=== PATIENT | male | born 1950 | race Caucasian/White ===

== ENCOUNTER 2018-07-18 05:34 | Inpatient (IN) | payer OTHER ==
[2018-07-18] VITALS (8 sets, daily range): BP systolic 128–171; BP diastolic 87–102
[~2018-07-18] VITALS: Ht 180.3 cm; Wt 101.2 kg
[2018-07-18] MEDS ORDERED: DYRENIUM50 MG PO (05:51)
[2018-07-18] MEDS ORDERED: ZETIA10 MG PO (06:16)
[2018-07-18] MEDS ORDERED: ZYLOPRIM300 MG PO (06:16)
[2018-07-18] MEDS ORDERED: PROTONIX 20 MG20 M1 PO (06:17)
[2018-07-18 06:18] LABS: HEMOGLOBIN 17.9 gm/dL (14.0-18.0); RDW 13.2 % (10.5-14.5)
[2018-07-18 06:19] LABS: ABSOLUTE NEUTROPHILS 7.2 thou/uL (1.4-8.2); BASOPHILS 0.7 % (0.0-2.0); HEMATOCRIT 52.3 % (42.0-52.0); LYMPHOCYTES 21.6 % (24.0-44.0); MCH 29.5 pg (26.0-34.0); MCHC 34.3 g/dL (28.0-37.0); MCV 86.2 fL (80.0-100.0); MONOCYTES 4.9 % (1.0-8.0); POLYS 70.8 % (36.0-66.0); RBC 6.06 mil/uL (4.50-6.00); WBC 10.1 thou/uL (4.0-11.0)
[2018-07-18 06:25] LABS: ANION GAP 10 mmol/L (7-16); BUN 10 mg/dL (7-18); CALCIUM 9.5 mg/dL (8.5-10.1); CHLORIDE 96 mmol/L (98-107); CO2 29 mmol/L (21-32); CREATININE 0.9 mg/dL (0.7-1.3); GLUCOSE 106 mg/dL (74-106); POTASSIUM 3.6 mmol/L (3.5-5.1); SODIUM 135 mmol/L (136-145)
[2018-07-18 06:36] LABS: ALBUMIN 4.4 g/dL (3.4-5.0); MAGNESIUM 2.2 mg/dL (1.8-2.4); SGOT 25 U/L (15-37); SGPT 39 U/L (30-65); TOTAL BILIRUBIN 0.8 mg/dL (<0.1-1.0); TOTAL PROTEIN 7.9 g/dL (6.4-8.2); TROPONIN-I <0.06 ng/mL (<0.06)
--- NOTE | 2018-07-18 07:11 | NUR ---
ASSUMED PT CARE, INITIAL ASSESSMENT COMPLETE. NO NEW C/O
[2018-07-18 07:38] LABS: PLATELET COUNT 30 thou/uL (150-400)
--- NOTE | 2018-07-18 08:55 | EKG ---
[address] [place] [place] [address] ELECTROCARDIOGRAM REPORT Name: LISA BADILLO Catherine Room #: 350-P ADM IN M.R.#: [id number] Admission: 07/18/18 Attend Phys: Yuri Gibson MD Discharge: Date of : 46 Report #: [id number] THIS REPORT FOR: //name// 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1950 Requested By: Eric Melendez Order Number: [id number] MD: Huey Araujo Measurements Intervals [place] Rate: 97 P: 17 TX: 171 QRS: -57 QRSD: 145 T: -23 QT: 385 QTc: 489 Interpretive Statements Sinus tachycardia Ventricular premature complexes RBBB and LAFB Cannot rule out inferior myocardial infarction, indeterminate age No previous ECG available for comparison Electronically Signed On 07-18-2018 8:55:26 PATTERN MECHANIC by Huey Araujo [email or web address] <ELECTRONICALLY SIGNED> By: Huey Araujo MD, [facility] 07/18/18 0855 0545 0545 Huye Araujo MD, [facility] /EPI
--- NOTE | 2018-07-18 08:57 | EKG ---
[place] [address] 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1950 Requested By: Eric Melendez Order Number: [id number] MD: Huey Araujo Measurements Intervals [place] Rate: 179 P: 0 OR: QRS: -103 QRSD: 121 T: -19 QT: 298 QTc: 515 Interpretive Statements Supraventricular tachycardia Right bundle branch block No previous ECG available for comparison Electronically Signed On 07-18-2018 8:56:49 FIRE DEPARTMENT MARINE ENGINEER by Huey Araujo [email or web address] <ELECTRONICALLY SIGNED> By: Huey Araujo MD, [facility] 07/18/18 0856 0715 4 Huey Araujo MD, FACC /EPI
--- NOTE | 2018-07-18 13:50 | NUR ---
RECEIVED REPORT FROM [facility]. PT ARRIVED UNIT AT 0800H. PT ACCOMPANIED BY DAUGHTER AT BEDSIDE. PT CAME ON CART. PT A&O X4. PT HAS NO S/S OF DISTRESS. PT STATES NO PAIN. PT AT AROUND 10 HAD HR ON 179. GIVEN DILTIAZEM GIVEN NON SCHEDULED. PT CURRENTLY HR OF 98. PHYSICIAN NOTIFIED. PT CONTINUES TO BE MONITORED. CALL LIGHT WITHIN REACH AND PT ON FALL PRECAUTION.
--- NOTE | 2018-07-18 15:15 | 2DMMODE ---
[facility] [place] [address] 2 D/M-MODE ECHOCARDIOGRAM Name: LISA BADILLO Room #: 350-P [facility] IN .R.#: [id number] Admission: 07/18/18 Attend Phys: Yuri Gibson, Discharge: Date of : 46 Date of Service: 07/18/18 1409 Report #: [id number] THIS REPORT FOR: //name// APPROVED REPORT Study performed: 07/18/2018 13:24:03 EXAM: Comprehensive 2D, Doppler, and color-flow Echocardiogram Patient Location: Bedside Room #: 350 Status: routine BSA: 2.21 HR: 88 bpm BP: 137/97 mmHg Rhythm: RBBB Other Information Study Quality: Good/no subcostal window. Indications SVT, RBBB, Chest pain, palpitations. Hx: HTN, HLP 2D Dimensions RVDd: 34.78 mm IVSd: 10.66 (7-11mm) LVOT Diam: 23.92 (18-24mm) LVDd: 55.54 mm PWd: 10.54 (7-11mm) Ascending Ao: 38.06 (22-36mm) LVDs: 38.12 (25-40mm) Aortic Root: 37.24 mm Volumes Left Atrial Volume (Systole) Single Plane 4CH: 65.38 mL Single Plane 2CH: 68.94 mL LA ESV Index: 33.00 mL/m2 Aortic Valve AoV Peak Kel.: 1.37 m/s AO Peak Gr.: 7.47 mmHg LVOT Max P.85 mmHg LVOT Max V: 0.84 m/s MAURA Vmax: 2.77 cm2 Mitral Valve E/A Ratio: 0.8 MV Decel. Time: 159.27 ms MV E Max Kel.: 0.65 m/s MV A Kel.: 0.77 m/s [facility] [place] [address] 2 D/M-MODE ECHOCARDIOGRAM Name: LISA BADILLO Room #: 350-P [facility] IN ..#: [id number] Admission: 07/18/18 Attend Phys: Yuri Gibson, Discharge: Date of : 46 Date of Service: 07/18/18 1409 Report #: [id number] MV PHT: 46.19 ms IVRT: 72.66 ms Pulmonary Valve PV Peak Kel.: 0.97 m/s PV Peak Gr.: 3.78 mmHg Pulmonary Vein P Vein S: 0.52 m/s P Vein D: 0.46 m/s P Vein S/D Ratio: 1.13 Tricuspid Valve TR Peak Kel.: 1.90 m/s TR Peak Gr.: 14.38 mmHg Left Ventricle The left ventricle is normal size. There is normal LV segmental wall motion. There is normal left ventricular wall thickness. Left ventricular systolic function is normal. LVEF is 50-55%. Mild diastolic dysfunction is present (impaired relaxation pattern). Right Ventricle The right ventricle is normal size. The right ventricular systolic function is normal. Atria Left atrium is mildly dilated. The right atrium size is normal. Aortic Valve The aortic valve is mildly thickened. No aortic regurgitation is present. There is no aortic valvular stenosis. Mitral Valve Mild mitral annular calcification. Mild to moderate mitral regurgitation. Tricuspid Valve The tricuspid valve is normal in structure. Trace to mild tricuspid regurgitation. Estimated PAP is 15mmHg plus the right atrial pressure. Pulmonic Valve The pulmonary valve is normal in structure. Trace pulmonic regurgitation. [facility] [address] [place] [address] 2 D/M-MODE ECHOCARDIOGRAM Name: LISA BADILLO Catherine Room #: 350-[facility] IN ..#: [id number] Admission: 07/18/18 Attend Phys: Yuri Gibson, Discharge: Date of : 46 Date of Service: 07/18/18 1409 Report #: [id number] Great Vessels The aortic root and ascending aorta measure at the upper limits of normal. IVC is not well visualized. Pericardium There is no pericardial effusion. <Conclusion> Left ventricular systolic function is normal. There is normal LV segmental wall motion. LVEF is 50-55%. Mild diastolic dysfunction The aortic valve is mildly thickened. No aortic regurgitation or stenosis Mild mitral annular calcification. Mild to moderate mitral regurgitation. There is no pericardial effusion. <ELECTRONICALLY SIGNED> By: Huey Araujo MD, FACC 07/18/18 140 08 08 Huey Araujo MD, FAC /INF
--- NOTE | 2018-07-18 22:15 | EKG ---
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1950 Requested By: Yuri Gibson Order Number: [id number] MD: Levy Juares Measurements Intervals [place] Rate: 104 P: [place]: QRS: -67 QRSD: 142 T: -20 QT: 375 QTc: 494 Interpretive Statements Atrial fibrillation Ventricular premature complex Right bundle branch block Inferior infarct, age indeterminate Compared to ECG 07/18/2018 05:45:32 Sinus tachycardia no longer present Left anterior fascicular block no longer present Myocardial infarct finding still present Electronically Signed On 07-18-2018 22:15:06 BRICKLAYER APPRENTICE by Levy Juares [email or web address] <ELECTRONICALLY SIGNED> By: Levy Juares MD 07/18/18 2215 8 8 Levy Juares MD /EPI
--- NOTE | 2018-07-18 22:20 | EKG ---
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: Melanie LOPEZ : 1950 Requested By: Diane Slater Order Number: [id number] MD: Levy Juares Measurements Intervals [place] Rate: 78 P: 27 [place]: 145 QRS: -77 QRSD: 143 T: -5 QT: 385 QTc: 439 Interpretive Statements Sinus rhythm Multiple premature complexes, vent & supraven Right bundle branch block Inferior infarct, age indeterminate Compared to ECG 07/18/2018 07:15:14 Myocardial infarct finding now present Supraventricular tachycardia no longer present Electronically Signed On 07-18-2018 22:20:36 TUBE COATER by Levy Juares [email or web address] <ELECTRONICALLY SIGNED> By: Levy Juares MD 07/18/180 16 16 Levy Juares MD /EPI
[2018-07-19 04:08] VITALS: BP 130/82
--- NOTE | 2018-07-19 04:39 | NUR ---
ASSUMED CARE FOR PT AT 1645. ASSESSMENT COMPLETE. FLUIDS INFUSING PER POC. PT STATES HE IS NO LONGER HAVING CHEST PAINS. DURING HOURLY ROUNDING CHECKING URINAL FOR OUTPUT, WHICH HAS BEEN GOOD ALL SHIFT. AT 0400 PT ASK TIME ANALYSIS CLERK IF HE CAN WALK AROUND UNIT. I ADVISED THAT IS A NO GO DUE TO HIS ADMISSION HX WITH WEAKNESS AND SVT. NEED TO ASSESS PTS ABILITY ON DAY BY DAY BASIS. HOURLY BED IN LOWEST POSITION AND CALL LIGHT WITHIN REACH.
[2018-07-19 07:29] VITALS: BP 135/89
--- NOTE | 2018-07-19 10:25 | NUR ---
ASSESSMENT: CM REVIEWED CHART AND MET WITH PATIENT AT THE BEDSIDE. PT IS ALERT AND ORIENTED X4. PT WAS ADMITTED DUE TO CP AND HEART PALPATATIONS. PT REPORTS HE LIVES IN A HOUSE ALONE. PT REPORTS TWO STEPS TO ENTER THE HOME WITH A HANDRAIL. PT REPORTS ONCE INSIDE HE DOES NOT USE ANY STEPS. PT REPORTS HE AMBUALTES INDEPENDENTLY AND IS STILL ACTIVE AND GOES TO THE GYM AND USES THE [employer]. PT REPORTS HE HAS NOT HAD HH IN THE PAST NOR BEEN TO A REHAB/SNF. PT REPORTS HAVING A WALK-IN SHOWER. PT DENIES HAVING DME OR THE NEED FOR IT. CM DISCUSSED ROLE. PT ANTICIPATES NO NEEDS AT DISCHARGE. PT REPORTS HIS DAUGHTER IS SUPPORTIVE AND HELPS HIM OUT IF NEEDED.
[2018-07-19 16:32] VITALS: BP 125/77
[2018-07-19 17:24] VITALS: BP 135/89
[2018-07-19 17:27] VITALS: BP 135/89
--- NOTE | 2018-07-19 18:08 | NUR ---
ASSUMED PT CARE AT 0700H. PT A&O X4. PT HAS NO S/S OF DISTRESS. PT STATES NO PAIN. PT HR BEING RUNNING 80, 70, AND 67 AT DC. PHYSICIAN NOTIFIED. PT HAD SHOWER TOO. PT CALLS APPROPRIATELY. PT'S FAMILY AT BEDSIDE. PT CURRENTLY DC HOME.
== END 2018-07-19 16:30 | disposition home or self-care (01) | DRG 310 ==
LOC: ER 05:34 → EROBS 07:02 → 3W 07:02 → ENTRNSPT 07-19 18:02
PROVIDERS: Emergency Medicine; ADMIT Family Medicine
DX: I47.2 Ventricular tachycardia (principal); I10 Essential (primary) hypertension; D69.6 Thrombocytopenia, unspecified; E78.5 Hyperlipidemia, unspecified; Z87.891 Personal history of nicotine dependence; Z79.899 Other long term (current) drug therapy; Z88.0 Allergy status to penicillin; Z88.6 Allergy status to analgesic agent; Z88.8 Allergy status to other drugs, medicaments and biological substances
CPT/HCPCS: 10879

== ENCOUNTER 2019-02-08 16:39 | Emergency (ER) | payer OTHER ==
[~2019-02-08] VITALS: Ht 180.3 cm; Wt 99.3 kg
[~2019-02-08 16:39] MED LIST: DYRENIUM50 MG PO; PROTONIX 20 MG20 M1 PO; ZETIA10 MG PO; ZYLOPRIM300 MG PO
[2019-02-08] MEDS ORDERED: MEDROLDOSEPACK PO (18:47)
[2019-02-08] MEDS ORDERED: ZYRTEC10 MG PO (18:47)
[2019-02-08 20:10] VITALS: BP 170/80
== END 2019-02-08 20:10 | disposition home or self-care (01) ==
LOC: ER 16:39
DX: L20.9 Atopic dermatitis, unspecified (principal); Z87.891 Personal history of nicotine dependence; Z88.6 Allergy status to analgesic agent; Z88.8 Allergy status to other drugs, medicaments and biological substances; Z88.0 Allergy status to penicillin; Z90.89 Acquired absence of other organs

== ENCOUNTER → 2020-06-29 | Outpatient (CLI) | payer OTHER ==
[~2020-06-29] MED LIST changes: +MEDROLDOSEPACK PO; +ZYRTEC10 MG PO
== END ==
LOC: SJCVC 14:10
PROVIDERS: ATTEND Internal Medicine
DX: R94.31 Abnormal electrocardiogram [ECG] [EKG] (principal); I47.1 Supraventricular tachycardia; E78.5 Hyperlipidemia, unspecified; I10 Essential (primary) hypertension; D69.6 Thrombocytopenia, unspecified; I45.10 Unspecified right bundle-branch block; E78.00 Pure hypercholesterolemia, unspecified; Z79.899 Other long term (current) drug therapy; Z87.891 Personal history of nicotine dependence; Z79.82 Long term (current) use of aspirin; Z88.0 Allergy status to penicillin

== ENCOUNTER 2021-06-18 21:19 | Inpatient (IN) | payer OTHER ==
[~2021-06-18] VITALS: Ht 180.3 cm; Wt 100.2 kg
--- NOTE | ~2021-06-18 | O ---
[facility] [place] [address] OPERATIVE REPORT Name: LISA BADILLO Room #: 150-2 ADM IN M.R.#: [id number] Admission: 06/19/21 Attend Phys: Danielito Steele MD Discharge: Date of : 46 Report #: [id number] THIS REPORT FOR: cc: Yuri Gibson MD, Neal A. MD Patterson,Maik Salinas MD ~ DATE OF SERVICE: 06/20/2021 PREOPERATIVE DIAGNOSIS: Acute cholecystitis. POSTOPERATIVE DIAGNOSIS: Acute cholecystitis. OPERATION: Laparoscopic cholecystectomy. SURGEON: Maik Anders MD ANESTHESIA: General. ESTIMATED BLOOD LOSS: Minimal. SPECIMENS: Gallbladder. DESCRIPTION OF PROCEDURE: After informed consent was obtained, the patient was brought to the operating room and placed supine. SCDs were placed and working, preoperative antibiotics were administered, general anesthesia was induced. The abdomen was prepped and draped in the usual sterile fashion. A 10 mm incision was made below the umbilicus. Fascia was incised and a trocar was placed. Pneumoperitoneum was established. Three right upper quadrant 5 mm trocars were placed under direct vision. The gallbladder was grasped. It was edematous and inflamed, consistent with cholecystitis. It was drained using a syringe. There was white bile. The gallbladder was then grasped and retracted cephalad. Infundibulum was grasped and retracted laterally. I dissected out the cystic duct and cystic artery. Cystic plate was fully identified. Cystic duct and artery were clipped and ligated leaving 2 clips on the remaining duct and 1 on the remaining artery. Gallbladder was then taken off the liver bed with electrocautery. It was placed into an Endopouch and removed. There was some oozing in the liver bed and given the patient's thrombocytopenia, I elected to carefully examine this area. Small bleeders were cauterized with the cautery. I then placed 10 mL of FloSeal into the liver bed as well as a piece of Surgicel. There was excellent hemostasis after this. The ports were removed under direct vision. The fascia was closed with a [id number] 0 Vicryl. Skin was closed with 4-0 Monocryl. Incisions were dressed with Steri-Strips. COMPLICATIONS: None. [address] [address] OPERATIVE REPORT Name: LISA BADILLO Room #: 150-2 [facility] IN .R.#: [id number] Admission: 06/19/21 Attend Phys: Danielito Steele MD Discharge: Date of : 46 Report #: [id number] DISPOSITION: The patient was taken to recovery in satisfactory condition. By: 0825 0928 Maik Anders MD /nt
[2021-06-18 21:42] VITALS: BP 160/86
[2021-06-18] MEDS ORDERED: PROTONIX40 M2 PO (21:48)
[2021-06-18] MEDS ORDERED: EZETIMIBE10 MG PO (21:49)
[2021-06-18] MEDS ORDERED: DILTIAZEM 24HR240 M1 PO (21:49)
[2021-06-18] MEDS ORDERED: TRIAMTERENE-HC1 EAC2 PO (21:49)
[2021-06-18] MEDS ORDERED: MIRALAX119 GM PO (21:50)
[2021-06-18] MEDS ORDERED: TRIAMCINOLONE A15 G1 TOP (21:50)
[2021-06-18] MEDS ORDERED: ACETAMINOPHEN PO (21:52)
[2021-06-19 00:47] LABS: ABSOLUTE NEUTROPHILS 15.7 thou/uL (1.4-8.2); BASOPHILS 0.3 % (0.0-2.0); EOSINOPHILS 0.4 % (0.0-3.0); HEMATOCRIT 45.7 % (42.0-52.0); HEMOGLOBIN 15.6 gm/dL (14.0-18.0); LYMPHOCYTES 7.3 % (24.0-44.0); MCH 28.5 pg (26.0-34.0); MCHC 34.2 g/dL (28.0-37.0); MCV 83.4 fL (80.0-100.0); MONOCYTES 4.5 % (1.0-8.0); POLYS 87.5 % (36.0-66.0); RBC 5.48 mil/uL (4.50-6.00); RDW 12.9 % (10.5-14.5)
[2021-06-19 00:55] LABS: CALCIUM 8.6 mg/dL (8.5-10.1); POTASSIUM 3.4 mmol/L (3.5-5.1)
[2021-06-19 00:56] LABS: URINE BILIRUBIN NEGATIVE (Negative); URINE BLOOD 1+ (Negative); URINE CLARITY CLEAR; URINE COLOR YELLOW; URINE GLUCOSE-RANDOM* NEGATIVE (Negative); URINE KETONES TRACE (Negative); URINE LEUKOCYTES-REFLEX NEGATIVE (Negative); URINE NITRITE-REFLEX NEGATIVE (Negative); URINE PROTEIN (DIPSTICK) NEGATIVE (Negative); URINE SPECIFIC GRAVITY 1.015 (1.005-1.035); URINE UROBILINOGEN 0.2 E.U./dl (0.2-1.0)
[2021-06-19 01:05] LABS: ALBUMIN 3.9 g/dL (3.4-5.0); TOTAL BILIRUBIN 0.5 mg/dL (0.2-1.0); TOTAL PROTEIN 6.9 g/dL (6.4-8.2)
[2021-06-19 01:11] LABS: PLATELET COUNT 33 thou/uL (150-400)
[2021-06-19 01:27] LABS: BACTERIA-REFLEX None Seen /HPF (None Seen); CASTS None Seen /LPF (None Seen); CRYSTALS None Seen /LPF (None Seen); MUCUS None Seen strn/LPF (None Seen); SQUAMOUS None Seen /LPF (0-3); URINE RBC 1-2 Rare /HPF (NONE SEEN); URINE WBC-REFLEX None Seen /HPF (0-5)
[2021-06-19 09:03] LABS: INR 1.01
[2021-06-19 11:58] VITALS: BP 137/86; BP 144/79; BP 144/87
[2021-06-20 06:07] LABS: ABSOLUTE NEUTROPHILS 9.3 thou/uL (1.4-8.2); BASOPHILS 0.4 % (0.0-2.0); EOSINOPHILS 2.4 % (0.0-3.0); HEMATOCRIT 43.7 % (42.0-52.0); HEMOGLOBIN 14.4 gm/dL (14.0-18.0); LYMPHOCYTES 10.9 % (24.0-44.0); PLATELET COUNT 54 thou/uL (150-400); POLYS 78.3 % (36.0-66.0); RBC 5.15 mil/uL (4.50-6.00); RDW 13.2 % (10.5-14.5); WBC 11.8 thou/uL (4.0-11.0)
[2021-06-20 06:22] LABS: CALCIUM 8.4 mg/dL (8.5-10.1); CREATININE 0.7 mg/dL (0.7-1.3); MAGNESIUM 1.9 mg/dL (1.8-2.4); POTASSIUM 4.3 mmol/L (3.5-5.1)
[2021-06-20 06:30] VITALS: BP 133/82
--- NOTE | 2021-06-20 07:19 | NUR ---
ANTIBIOTICS (METRONDIAZOLE, CIPRO AND FLUIDS- LACTATED TINGERS SENT TO OR WITH OR STAFF
--- NOTE | 2021-06-20 07:27 | EKG ---
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 06/20/21 0727 0055 Ole Blanco MD, FAC /EPI
--- NOTE | 2021-06-20 08:35 | 2DMMODE ---
[facility] [place] [address] 2 D/M-MODE ECHOCARDIOGRAM Name: LISA BADILLO Room #: 150-2 ADM IN M.R.#: [id number] Admission: 06/19/21 Attend Phys: Danielito Steele MD Discharge: Date of : 46 Report #: [id number] THIS REPORT FOR: cc: Yuri Gibson MD, Neal A. MD Santiago, Patrick MD [facility] ~ APPROVED REPORT Study performed: 06/19/2021 11:07:41 EXAM: Comprehensive 2D, Doppler, and color-flow Echocardiogram Patient Location: ER Status: on-call BSA: 2.16 HR: 83 bpm BP: 129/78 mmHg Rhythm: RBBB Indications Pre-Op clearance. SVT, RBBB 2D Dimensions IVSd: 12.18 (7-11mm) LVOT Diam: 20.77 (18-24mm) LVDd: 44.39 mm PWd: 10.46 (7-11mm) LVDs: 33.52 (25-40mm) Left Atrium: 36.60 (27-40mm) Aortic Root: 38.29 mm Volumes Left Atrial Volume (Systole) Single Plane 4CH: 69.65 mL Single Plane 2CH: 54.27 mL LA ESV Index: 31.00 mL/m2 Aortic Valve AoV Peak Kel.: 1.45 m/s AO Peak Gr.: 8.38 mmHg LVOT Max P.20 mmHg LVOT Max V: 0.89 m/s MAURA Vmax: 2.09 cm2 Mitral Valve E/A Ratio: 0.8 MV Decel. Time: 173.97 ms [facility] [address] [address] 2 D/M-MODE ECHOCARDIOGRAM Name: LISA BADILLO Room #: 150-2 ADM IN [facility]#: [id number] Admission: 06/19/21 Attend Phys: Danielito Steele MD Discharge: Date of : 46 Report #: [id number] MV E Max Kel.: 0.56 m/s MV A Kel.: 0.71 m/s MV PHT: 50.45 ms IVRT: 83.04 ms Pulmonary Valve PV Peak Kel.: 0.98 m/s PV Peak Gr.: 3.86 mmHg Tricuspid Valve TR Peak Kel.: 2.26 m/s TR Peak Gr.: 20.41 mmHg Left Ventricle The left ventricle is normal size. There is normal LV segmental wall motion. There is normal left ventricular wall thickness. Left ventricular systolic function is normal. LVEF is 55%. Mild diastolic dysfunction is present (impaired relaxation pattern). Right Ventricle The right ventricle is normal size. The right ventricular systolic function is normal. Atria The left atrium size is normal. The right atrium size is normal. Aortic Valve The aortic valve is normal in structure. No aortic regurgitation is present. There is no aortic valvular stenosis. Mitral Valve Mild mitral annular calcification. There is no mitral valve regurgitation noted. No evidence of mitral valve stenosis. Tricuspid Valve The tricuspid valve is normal in structure. Trace tricuspid regurgitation. Estimated PAP is 20mmHg plus the right atrial pressure. Pulmonic Valve The pulmonary valve is normal in structure. Trace pulmonic regurgitation. Great Vessels The aortic root is normal in size. Ascending aorta is not well visualized. The inferior vena cava is not [facility] [address] [address] 2 D/M-MODE ECHOCARDIOGRAM Name: LISA BADILLO Room #: 150-2 ADM IN .R.#: [id number] Admission: 06/19/21 Attend Phys: Danielito Steele MD Discharge: Date of : 46 Report #: [id number] visualized. Pericardium There is no pericardial effusion. <Conclusion> Normal left ventricle size/wall thickness Ejection fraction 55% Grade 1 diastolic dysfunction Normal right ventricle size/function Normal atrial size Normal aortic valve structure and function Mild aortic valve calcification without stenosis Trace tricuspid valve insufficiency Pulmonary systolic pressure estimated 20 mmHg No pericardial effusion Normal aortic root size <ELECTRONICALLY SIGNED> By: Ole Blanco MD, [facility] 06/20/21 0834 0834 Ole Blanco MD, FACC /INF
[2021-06-20 17:14] VITALS: BP 124/89
--- NOTE | 2021-06-20 17:58 | NUR ---
PATIENT ARRIVE FROM [facility] AROUND 1730, AXO X4. NO PAIN, ANSWERING ALL ADMISSION QUESTIONS, SCD APPLIED TO BOTH CALF, CALL LIGHT WITHIN REACH, WILL BE CONTINOUS MONITORING.
[2021-06-20 20:30] VITALS: BP 120/76
--- NOTE | 2021-06-21 04:57 | NUR ---
RECEIVED CARE OF THIS PATIENT AT 1900. UP WITH SBA D/T SURGERY. HAS 4 LAP SITES ON ABD, 2 WITH STERI STRIPS. DENIES PAIN. SLEPT MOST OF NIGHT.
[2021-06-21 06:22] LABS: HEMATOCRIT 39.9 % (42.0-52.0); HEMOGLOBIN 13.1 gm/dL (14.0-18.0); MCHC 32.8 g/dL (28.0-37.0); MCV 85.5 fL (80.0-100.0); RBC 4.67 mil/uL (4.50-6.00); RDW 13.3 % (10.5-14.5); WBC 18.2 thou/uL (4.0-11.0)
[2021-06-21 07:38] VITALS: BP 123/75
--- NOTE | 2021-06-21 09:55 | NUR ---
Chart review. Dx s/p emre bonilla. been in to see him this morning. Anticipated dc home today. No needs. Lives alone, house, 2 steps in through the garage. No dme. Drives, manage own medication. Does house and yard work. Has walk in shower. Will have support from his daughter rajeev # [phone] if needed per yara.
[2021-06-21 12:23] VITALS: BP 123/75
--- NOTE | 2021-06-21 12:42 | NUR ---
PATIENT CARE RESUMMED; PATIENT RESTING COMFORTABLY IN BED; A&O*4; AMBULATORY WITHOUT ASSIST; SHOWER RECIEVED TODAY PRIOR TO D/C; RIGHT FOREARM IV RUNNING NS WITH 20KCL @75ML/HR; 4 INCISIONS TO ABDOMEN; 2 WITH STERISTRIPS APPLIED; WOUNDS C/D/I; VSS ON ROOM AIR; PATIENT VOICES CONCERNS ABOUT WHEN HE WILL BE GOING HOME; PATIENT INFORMED OF D/C ORDERS PLACED TODAY; MEAL/MEDICATION COMPLIANT; PLEASENT & COOPERATIVE WITH CARES; CALL LIGHT WITHIN REACH; WITH FALL PRECAUTIONS IN PLACE;
--- NOTE | 2021-06-21 13:28 | NUR ---
IV FLUIDS STOPPED AT 1320; IV DISCONTINUED @1330; PATIENT DISCHARGED AT 1330 WITH DAUGHTER VIA W/C AND ASSISTED OUT OF FACILITY WITH NURSING STAFF; BELONGINGS ACCOUNTED FOR; D/C PAPERWORK GIVEN ALONG SIDE EDUCATION;
--- NOTE | 2021-06-23 10:07 | PATH ---
[facility] [place] [address] PATHOLOGY RPT PROCEDURE Name: LISA BADILLO Room #: 446-P DIS IN M.R.#: [id number] Admission: 06/19/21 Date of : 46 Discharge: 06/21/21 Report #: [id number] Path Case #: [id number] [facility] Accession Number: [id number] . 01 Material submitted: . gallbladder - GALLBLADDER . 01 Clinical history: . LAPAROSCOPIC CHOLECYSTECTOMY- SJ CHOLECYSTITIS . 02 Diagnosis: Gallbladder, cholecystectomy: - Chronic cholecystitis and cholelithiasis. - One benign periductal lymph node identified. - Negative for malignancy. . (ANK:mml; 06/22/2021) QLM 06/22/2021 1202 Local . 02 Electronically signed: . Shila Medeiros MD, Pathologist NPI- [id number] . 01 Gross description: . Fixative: Formalin Labeled: Gallbladder Specimen received: Previously disrupted gallbladder Dimensions: 9.5 x 4.4 x 3.8 cm Serosa: Red-purple and smooth Lymph node: Possibly identified Mucosa: [place]-red and roughened with mild yellow stippling Average wall thickness: Up to 0.4 cm Calculi: Single calculi present displaying a bright yellow and slightly granular appearance, measuring 2.8 cm Abnormalities: None identified . A1- Rehabilitation Liaison body, fundus, and the cystic duct margin. ([facility]; 06/20/2021) NRI/NRI 06/20/2021 1523 Local . 02 Pathologist provided ICD-10: K80.10 . 02 CPT . 896156 Specimen Comment: A courtesy copy of this report has been sent to [phone] [phone] PATHOLOGY RPT PROCEDURE Name: LISA BADILLO Catherine Room #: 446-P [facility] IN ..#: [id number] Admission: 06/19/21 Date of : 46 Discharge: 06/21/21 Report #: [id number] Path Case #: [id number] Specimen Comment: [id number], Specimen Comment: Report sent to , DR PANIAGUA / DR KELLOGG Specimen Comment: A duplicate report has been generated due to demographic updates. Performed at: 01 [facility] [address], [place], [place] [address] MD Jhony Lieberman MD Phone: [phone] Performed at: [address] [id number] MD Shila Medeiros MD Phone: [phone]
== END 2021-06-21 13:37 | disposition home or self-care (01) | DRG 418 ==
LOC: ER 21:19 → 4S 06-19 05:18 → EROBS 06-19 05:18 → TBA 06-20 06:23 → 4S 06-20 06:30
PROVIDERS: Emergency Medicine; Hospitalist; Nurse Practitioner; Surgery; ADMIT Internal Medicine; ATTEND Internal Medicine
PROC: 30233R1 Transfusion of Nonautologous Platelets into Peripheral Vein, Percutaneous Approach (ICD-10-PCS; principal; 2021-06-19)
PROC: 30233N1 Transfusion of Nonautologous Red Blood Cells into Peripheral Vein, Percutaneous Approach (ICD-10-PCS; 2021-06-20)
PROC: 0FT44ZZ Resection of Gallbladder, Percutaneous Endoscopic Approach (ICD-10-PCS; 2021-06-20)
DX: K80.00 Calculus of gallbladder with acute cholecystitis without obstruction (principal); D69.42 Congenital and hereditary thrombocytopenia purpura; E87.1 Hypo-osmolality and hyponatremia; I47.1 Supraventricular tachycardia; E87.6 Hypokalemia; E78.5 Hyperlipidemia, unspecified; I10 Essential (primary) hypertension; E78.00 Pure hypercholesterolemia, unspecified; I45.10 Unspecified right bundle-branch block; Z20.822 Contact with and (suspected) exposure to COVID-19; Z88.6 Allergy status to analgesic agent; Z88.1 Allergy status to other antibiotic agents; Z88.0 Allergy status to penicillin; Z88.8 Allergy status to other drugs, medicaments and biological substances; Z87.891 Personal history of nicotine dependence; Z79.899 Other long term (current) drug therapy
CPT/HCPCS: 10100; 10195; 50010; 50101; 50411; 50555; 50900; 51489; 51751; 52265; 52266; 53307; 53312; 53314; 55245; 56462; 56525; 56526; 58574; 62110; 62900; 65090; 70005

== ENCOUNTER → 2021-07-07 | Outpatient (CLI) | payer OTHER ==
[~2021-07-07] MED LIST changes: +ACETAMINOPHEN PO; +DILTIAZEM 24HR240 M1 PO; +EZETIMIBE10 MG PO; +MIRALAX119 GM PO; +PROTONIX40 M2 PO; +TRIAMCINOLONE A15 G1 TOP; +TRIAMTERENE-HC1 EAC2 PO
== END ==
LOC: SJCVC 12:59
PROVIDERS: ATTEND Internal Medicine
DX: R94.31 Abnormal electrocardiogram [ECG] [EKG] (principal); I49.1 Atrial premature depolarization; I47.1 Supraventricular tachycardia; I45.10 Unspecified right bundle-branch block; E78.5 Hyperlipidemia, unspecified; D69.6 Thrombocytopenia, unspecified; E78.00 Pure hypercholesterolemia, unspecified; I10 Essential (primary) hypertension; Z87.891 Personal history of nicotine dependence; Z79.899 Other long term (current) drug therapy; Z88.0 Allergy status to penicillin; Z88.1 Allergy status to other antibiotic agents; Z88.8 Allergy status to other drugs, medicaments and biological substances